=== PATIENT | female | born 1990 | race Caucasian/White ===

== ENCOUNTER 2019-09-08 22:49 | Observation (INO) | payer BC, OTHER ==
[2019-09-08] MEDS ORDERED: ASPIRIN 81 MG PO STA (23:05)
[2019-09-08] MEDS ORDERED: NITROGLYCERIN SL TABS 0.4 MG TAB SUBLINGUAL STA ×3 (23:05)
--- NOTE | 2019-09-08 23:09 | ED ---
General Adult HPI - General Source: patient, RN notes reviewed Mode of arrival: wheelchair Limitations: no limitations <Diego Bolanos - Last Filed: 09/09/19 00:06> <Ba Moreno - Last Filed: 09/09/19 02:27> - General Chief complaint: Chest Pain Stated complaint: Chest Pain Time Seen by Provider: 09/08/19 23:00 - History of Present Illness Initial comments: Patient is a pleasant 29-year-old female presenting to the emergency department with complaints of chest discomfort. Onset of symptoms was 2 weeks ago. Sy mptoms of been steady since that time. Symptoms are somewhat increased with movement of the left arm. Patient did have MRI of the neck month or so ago showing some bulging disks. Patient describes discomfort as sharp in the chest with burning radiating down the arm. Patient does feel somewhat short of breath. Patient occasionally has associated nausea and sweating, none at this time. Patient has previously seen radiology for leg edema and had negative cardiac workup around 1 year ago. This included stress test. No cough or fever. (Diego Bolanos) - Related Data Home Medications Medication Instructions Recorded Confirmed Drospirenone-Ee 3-0.02 1 tab PO DAILY 09/08/19 Gabapentin [Neurontin] 300 mg PO HS 09/08/19 09/08/19 Allergies Allergy/AdvReac Type Severity Reaction Status Date / Time No Known Allergies Allergy Verified 09/08/19 23:20 Review of Systems ROS Other: All systems not noted in ROS Statement are negative. Constitutional: Denies: fever Eyes: Denies: eye pain ENT: Reports: throat pain. Denies: ear pain Cardiovascular: Reports: chest pain Endocrine: Denies: fatigue Gastrointestinal: Denies: abdominal pain Genitourinary: Denies: dysuria Musculoskeletal: Denies: back pain Skin: Denies: rash Neurological: Denies: weakness <Diego Bolanos - Last Filed: 09/09/19 00:06> ROS Other: All systems not noted in ROS Statement are negative. <Ba Moreno - Last Filed: 09/09/19 02:27> ROS Statement: Those systems with pertinent positive or pertinent negative responses have been documented in the HPI. Past Medical History Additional Past Medical History / Comment(s): back pain, bronchitis, History of Any Multi-Drug Resistant Organisms: None Reported Past Surgical History: Back Surgery, Section Additional Past Surgical History / Comment(s): laproscopy Past Psychological History: No Psychological Hx Reported Smoking Status: Never smoker Past Alcohol Use History: Occasional Past Drug Use History: None Reported <Diego Bolanos - Last Filed: 09/09/19 00:06> General Exam Limitations: no limitations General appearance: alert, in no apparent distress Head exam: Present: normocephalic Eye exam: Present: normal appearance, PERRL ENT exam: Present: normal oropharynx Neck exam: Present: normal inspection Respiratory exam: Present: normal lung sounds bilaterally, chest wall tenderness (Mild tenderness left upper anterior chest) Cardiovascular Exam: Present: regular rate, normal rhythm Expanded Peripheral pulses: 2+: Radial (R), Radial (L), Dorsalis Pedis (R), Dorsalis Pedis (L) GI/Abdominal exam: Present: soft. Absent: distended, tenderness Extremities exam: Present: pedal edema (+1 bilateral). Absent: calf tenderness Back exam: Present: tenderness (Mild tenderness left trapezius) Neurological exam: Present: alert Psychiatric exam: Present: normal affect, normal mood Skin exam: Present: normal color. Absent: rash <Diego Bolanos - Last Filed: 09/09/19 00:06> Course Vital Signs 09/08/19 09/08/19 09/09/19 22:54 23:40 00:15 Temperature 98.4 F Pulse Rate 77 80 Respiratory 18 18 18 Rate Blood Pressure 151/89 136/87 O2 Sat by Pulse 98 97 Oximetry 09/09/19 00:47 Temperature 98.6 F Pulse Rate 72 Respiratory 18 Rate Blood Pressure 150/83 O2 Sat by Pulse 99 Oximetry EKG Findings - EKG Comments: EKG Findings:: Normal sinus rhythm 66. DC 158. QRS 100. QT 394. QTC 413. Normal axis. Normal QRS. No acute ST change. <Diego Bolanos - Last Filed: 09/09/19 00:06> Medical Decision Making - Lab Data Result diagrams: 09/08/19 23:38 - Radiology Data Radiology results: image reviewed (Chest x-ray shows no acute process) <Diego Bolanos - Last Filed: 09/09/19 00:06> - Lab Data Result diagrams: 09/08/19 23:38 09/08/19 23:38 <Ba Moreno - Last Filed: 10/17/19 02:27> - Medical Decision Making I receive this patient has a sign out, pending the results of the computed tomography scan. Dr. Bolanos had wanted me to discuss the results with the patient and complete the admission orders, given that the patient had chest pain that was relieved with nitroglycerin he had one on her to have serial cardiac enzymes and telemetry monitoring. (Ba Moreno) - Lab Data Lab Results 09/08/19 09/08/19 09/08/19 Range/Units 23:38 23:38 23:38 WBC 11.8 H (3.8-10.6) k/uL RBC 4.04 (3.80-5.40) m/uL Hgb 12.2 (11.4-16.0) gm/dL Hct 35.1 (34.0-46.0) % MCV 87.1 (80.0-100.0) fL MCH 30.3 (25.0-35.0) pg MCHC 34.8 (31.0-37.0) g/dL RDW 13.5 (11.5-15.5) % Plt Count 318 (150-450) k/uL Neutrophils % 64 % Lymphocytes % 27 % Monocytes % 5 % Eosinophils % 2 % Basophils % 0 % Neutrophils # 7.5 (1.3-7.7) k/uL Lymphocytes # 3.2 (1.0-4.8) k/uL Monocytes # 0.6 (0-1.0) k/uL Eosinophils # 0.2 (0-0.7) k/uL Basophils # 0.0 (0-0.2) k/uL PT 9.4 (9.0-12.0) sec INR 0.8 (<1.2) APTT 22.2 (22.0-30.0) sec D-Dimer 0.61 H (<0.60) mg/L FEU Sodium 138 (137-145) mmol/L Potassium 3.9 (3.5-5.1) mmol/L Chloride 104 (98-107) mmol/L Carbon Dioxide 27 (22-30) mmol/L Anion Gap 7 mmol/L BUN 11 (7-17) mg/dL Creatinine 1.01 (0.52-1.04) mg/dL Est GFR (CKD-EPI)AfAm 86 (>60 ml/min/1.73 sqM) Est GFR (CKD-EPI)NonAf 75 (>60 ml/min/1.73 sqM) Glucose 106 H (74-99) mg/dL Calcium 9.4 (8.4-10.2) mg/dL Magnesium 2.0 (1.6-2.3) mg/dL Total Bilirubin <0.1 L (0.2-1.3) mg/dL AST 19 (14-36) U/L ALT 16 (9-52) U/L Alkaline Phosphatase 59 (38-126) U/L Troponin I (0.000-0.034) ng/mL NT-Pro-B Natriuret Pep pg/mL Total Protein 6.8 (6.3-8.2) g/dL Albumin 3.9 (3.5-5.0) g/dL 09/08/19 09/08/19 Range/Units 23:38 23:38 WBC (3.8-10.6) k/uL RBC (3.80-5.40) m/uL Hgb (11.4-16.0) gm/dL Hct (34.0-46.0) % MCV (80.0-100.0) fL MCH (25.0-35.0) pg MCHC (31.0-37.0) g/dL RDW (11.5-15.5) % Plt Count (150-450) k/uL Neutrophils % % Lymphocytes % % Monocytes % % Eosinophils % % Basophils % % Neutrophils # (1.3-7.7) k/uL Lymphocytes # (1.0-4.8) k/uL Monocytes # (0-1.0) k/uL Eosinophils # (0-0.7) k/uL Basophils # (0-0.2) k/uL PT (9.0-12.0) sec INR (<1.2) APTT (22.0-30.0) sec D-Dimer (<0.60) mg/L FEU Sodium (137-145) mmol/L Potassium (3.5-5.1) mmol/L Chloride (98-107) mmol/L Carbon Dioxide (22-30) mmol/L Anion Gap mmol/L BUN (7-17) mg/dL Creatinine (0.52-1.04) mg/dL Est GFR (CKD-EPI)AfAm (>60 ml/min/1.73 sqM) Est GFR (CKD-EPI)NonAf (>60 ml/min/1.73 sqM) Glucose (74-99) mg/dL Calcium (8.4-10.2) mg/dL Magnesium (1.6-2.3) mg/dL Total Bilirubin (0.2-1.3) mg/dL AST (14-36) U/L ALT (9-52) U/L Alkaline Phosphatase (38-126) U/L Troponin I <0.012 (0.000-0.034) ng/mL NT-Pro-B Natriuret Pep 59 pg/mL Total Protein (6.3-8.2) g/dL Albumin (3.5-5.0) g/dL Disposition <Diego Bolanos - Last Filed: 09/09/19 00:06> Is patient prescribed a controlled substance at d/c from ED?: No <Ba Moreno - Last Filed: 09/09/19 02:27> Clinical Impression: Chest pain Disposition: ADMITTED IP TO THIS HOSP Condition: Good Instructions (If sedation given, give patient instructions): Chest Pain (ED) Referrals: None,Stated [REFERRING] - 1-2 days
[2019-09-08 23:54] LABS: Basophils % (A) 0 %; Eosinophils # (A) 0.2 k/uL (0-0.7); Eosinophils % (A) 2 %; HCT 35.1 % (34.0-46.0); HGB 12.2 gm/dL (11.4-16.0); Lymphocytes # (A) 3.2 k/uL (1.0-4.8); Lymphocytes % (A) 27 %; MCH 30.3 pg (25.0-35.0); MCHC 34.8 g/dL (31.0-37.0); MCV 87.1 fL (80.0-100.0); Monocytes # (A) 0.6 k/uL (0-1.0); Monocytes % (A) 5 %; Neutrophils # (A) 7.5 k/uL (1.3-7.7); Neutrophils % (A) 64 %; Platelet Count 318 k/uL (150-450); RBC 4.04 m/uL (3.80-5.40); RDW 13.5 % (11.5-15.5); WBC 11.8 k/uL (3.8-10.6)
--- NOTE | 2019-09-08 23:58 | XR ---
EXAM: XR Chest, 2 Views CLINICAL HISTORY: Chest pain. TECHNIQUE: Frontal and lateral views of the chest. COMPARISON: 08/08/2016. FINDINGS: Lungs: Unremarkable. No consolidation. Pleural space: No pneumothorax. No pleural effusion. Heart: Cardiomediastinal silhouette unremarkable. Mediastinum: See above. Bones/joints: Ribs are unremarkable. Alignment of the thoracic spine is unremarkable. Other findings: Mild hypoaeration. IMPRESSION: Mild hypoaeration. No active disease detected otherwise.
[2019-09-09 00:08] LABS: ALT 16 U/L (9-52); AST 19 U/L (14-36); African American GFR (CKD) 86 (>60 ml/min/1.73 sqM); Albumin 3.9 g/dL (3.5-5.0); Alkaline Phosphatase 59 U/L (38-126); Anion Gap 7 mmol/L; Blood Urea Nitrogen 11 mg/dL (7-17); Calcium 9.4 mg/dL (8.4-10.2); Carbon Dioxide 27 mmol/L (22-30); Chloride 104 mmol/L (98-107); Glucose 106 mg/dL (74-99); Potassium 3.9 mmol/L (3.5-5.1); Sodium 138 mmol/L (137-145); Total Bilirubin <0.1 mg/dL (0.2-1.3); Total Protein 6.8 g/dL (6.3-8.2)
[2019-09-09 00:17] LABS: INR 0.8 (<1.2); Partial Thromboplastin Time 22.2 sec (22.0-30.0); Prothrombin Time 9.4 sec (9.0-12.0)
[2019-09-09 00:22] LABS: D-Dimer 0.61 mg/L FEU (<0.60)
--- NOTE | 2019-09-09 01:59 | CT ---
EXAM: CT Angiography Chest With Intravenous Contrast CLINICAL HISTORY: ITS.REASON CT Reason: PE protocol, chest pain TECHNIQUE: Axial computed tomographic angiography images of the chest with intravenous contrast. CTDI is 26 mGy and DLP is 688 mGy-cm. This CT exam was performed using one or more of the following dose reduction techniques: automated exposure control, adjustment of the mA and/or kV according to patient size, and/or use of iterative reconstruction technique. MIP reconstructed images were created and reviewed. COMPARISON: No relevant prior studies available. FINDINGS: Pulmonary arteries: Unremarkable. No pulmonary embolism. Aorta: No acute findings. No thoracic aortic aneurysm. Lungs: Unremarkable. No mass. No consolidation. Pleural space: Unremarkable. No significant effusion. No pneumothorax. Heart: Unremarkable. No cardiomegaly. No significant pericardial effusion. No evidence of RV dysfunction. Bones/joints: No acute fracture. No dislocation. Soft tissues: Unremarkable. Lymph nodes: Unremarkable. No enlarged lymph nodes. IMPRESSION: Normal chest CTA. No pulmonary embolism.
[2019-09-09] MEDS ORDERED: NITROGLYCERIN SL TABS 0.4 MG TAB SUBLINGUAL PRN (02:23)
[2019-09-09 03:08] VITALS: PULSE 70
[2019-09-09 07:30] VITALS: RESP 16
--- NOTE | 2019-09-09 14:09 | P.CRDCN ---
History of Present Illness History of present illness: This is a 29-year-old female past medical history significant for chronic back pain and bronchitis. She denies prior history of coronary artery disease, hypertension, dyslipidemia and diabetes mellitus. She has family history significant for father having a pacemaker and her mother has a murmur. No premature coronary artery disease. 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 She states she had a exercise stress test over a year ago and an echocardiogram in 2013. Records unavailable at this time. We have been asked to see her in consultation secondary to chest discomfort. She states for the previous 2 weeks she has felt an intermittent stabbing burning chest discomfort on the left side that radiates into the left shoulder around under the left axillary region into the rib cage and mid back. She also describes a heavy numb sensation in the left arm that has been constant for the previous 2 weeks. She also describes increased fatigue and states she is falling asleep while sitting in traffic lights and unable to stay awake all at work. She also describes a 15 pound weight gain in the previous one month. He denies shortness of breath, dizziness, nausea, vomiting or palpitations. EKG reveals sinus mechanism with no acute ST or T wave abnormalities noted. Chest x-ray is negative for an acute cardiopulmonary process. CTA chest negative for pulmonary embolism. Laboratory data reviewed, WBC 11.8, hemoglobin 12.2, platelets 318, d-dimer 0.61, sodium 138, potassium 3.9, creatinine 1.01, magnesium 2.0, cardiac enzymes negative 3, proBNP 59 and TSH 2.07. She takes no daily cardiac medications. At the time of my exam: CONSTITUTIONAL: Denies fever. Denies chills. EYES: Denies blurred vision. Denies vision changes. Denies eye pain. EARS, NOSE, MOUTH & THROAT: Denies headache. Denies sore throat. Denies ear pain. CARDIOVASCULAR: Denies chest pain. Denies shortness of breath. Denies orthopnea. Denies PND. Denies palpitations. RESPIRATORY: Denies cough. GASTROINTESTINAL: Denies abdominal pain. Denies diarrhea. Denies constipation. Denies nausea. Denies vomiting. MUSCULOSKELETAL: Denies myalgias. INTEGUMENTARY: Denies pruitis. Denies rash. NEUROLOGIC: Denies numbness. Denies tingling. Denies weakness. PSYCHIATRIC: Denies anxiety. Denies depression. ENDOCRINE: Denies fatigue. Denies weight change. Denies polydipsia. Denies polyurina. GENITOURINARY: Denies burning, hematuria or urgency with micturation. HEMATOLOGIC: Denies history of anemia. Denies bleeding. Blood pressure 120/77 heart rate 70 afebrile maintaining oxygen saturation on room air GENERAL: This is a 29-year-old female in no apparent distress at the time of my examination. HEENT: Head is atraumatic, normocephalic. Pupils are equal, round. Sclerae anicteric. Conjunctivae are clear. Mucous membranes of the mouth are moist. Neck is supple. There is no jugular venous distention. No carotid bruit is heard. LUNGS: Clear to auscultation no wheezes, rales or rhonchi. No chest wall t enderness is noted on palpation or with deep breathing. HEART: Regular rate and rhythm without murmurs, rubs or gallops. S1 and S2 heard. ABDOMEN: Soft, nontender. Bowel sounds are heard. No organomegaly noted. EXTREMITIES: No evidence of peripheral edema and no calf tenderness noted. VASCULAR: Radial and dorsalis pedis pulses palpated, no evidence of clubbing. NEUROLOGIC: Patient is awake, alert and oriented x3. ASSESSMENT Chest pain, atypical. An acute coronary event has been ruled out. Symptoms are atypical to be related to angina consider possible musculoskeletal related to her back. Increased fatigue and recent weight gain PLAN An acute coronary event has been ruled out. No EKG evidence of ischemia negative cardiac enzymes. Obtain 2-D echocardiogram and Doppler study to assess cardiac structure and function. Recommend stress echocardiogram to assess for stress-induced ischemia. Consider possible radiculopathy. Thank you kindly for this consultation. Nurse Practitioner note has been reviewed, I agree with a documented findings and plan of care. Patient was seen and examined. Past Medical History Additional Past Medical History / Comment(s): back pain, bronchitis, History of Any Multi-Drug Resistant Organisms: None Reported Past Surgical History: Back Surgery, Section Additional Past Surgical History / Comment(s): laproscopy Past Anesthesia/Blood Transfusion Reactions: No Reported Reaction Past Psychological History: Anxiety Smoking Status: Never smoker Past Alcohol Use History: Occasional Past Drug Use History: None Reported Medications and Allergies Home Medications Medication Instructions Recorded Confirmed Type Drospirenone-Ee 3-0.02 1 tab PO DAILY 09/08/19 History Gabapentin [Neurontin] 300 mg PO HS 09/08/19 09/08/19 History Allergies Allergy/AdvReac Type Severity Reaction Status Date / Time No Known Allergies Allergy Verified 09/08/19 23:20 Physical Exam Vitals: Vital Signs Temp Pulse Pulse Resp BP BP Pulse Ox 09/09/19 07:41 98 09/09/19 07:20 98.2 F 70 16 120/77 98 09/09/19 03:28 17 09/09/19 02:50 98.2 F 70 18 125/79 98 09/09/19 02:29 98 F 79 18 140/82 97 09/09/19 00:47 98.6 F 72 18 150/83 99 09/09/19 00:15 18 09/08/19 23:40 80 18 136/87 97 09/08/19 22:54 98.4 F 77 18 151/89 98 Intake and Output 09/08/19 09/09/19 09/09/19 22:59 06:59 14:59 Other: # Voids 1 Weight 111.13 kg Results 09/08/19 23:38 09/08/19 23:38 Cardiac Enzymes 09/08/19 09/08/19 09/09/19 Range/Units 23:38 23:38 05:29 AST 19 (14-36) U/L Troponin I <0.012 <0.012 (0.000-0.034) ng/mL Coagulation 09/08/19 Range/Units 23:38 PT 9.4 (9.0-12.0) sec APTT 22.2 (22.0-30.0) sec CBC 09/08/19 Range/Units 23:38 WBC 11.8 H (3.8-10.6) k/uL RBC 4.04 (3.80-5.40) m/uL Hgb 12.2 (11.4-16.0) gm/dL Hct 35.1 (34.0-46.0) % Plt Count 318 (150-450) k/uL Comprehensive Metabolic Panel 09/08/19 Range/Units 23:38 Sodium 138 (137-145) mmol/L Potassium 3.9 (3.5-5.1) mmol/L Chloride 104 (98-107) mmol/L Carbon Dioxide 27 (22-30) mmol/L BUN 11 (7-17) mg/dL Creatinine 1.01 (0.52-1.04) mg/dL Glucose 106 H (74-99) mg/dL Calcium 9.4 (8.4-10.2) mg/dL AST 19 (14-36) U/L ALT 16 (9-52) U/L Alkaline Phosphatase 59 (38-126) U/L Total Protein 6.8 (6.3-8.2) g/dL Albumin 3.9 (3.5-5.0) g/dL Current Medications Generic Name Dose Route Start Last Admin Trade Name Freq PRN Reason Stop Dose Admin Aspirin 325 mg 09/10/19 09:00 Aspirin PO DAILY SANIA Nitroglycerin 0.4 mg 09/09/19 02:23 Nitrostat SUBLINGUAL Q5M PRN Chest Pain Intake and Output 09/08/19 09/09/19 09/09/19 22:59 06:59 14:59 Other: # Voids 1 Weight 111.13 kg 09/08/19 23:38 09/08/19 23:38
[2019-09-09 15:19] VITALS: BP 95/62; TEMP 98.6
[2019-09-09] MEDS ORDERED: NAPROXEN 250 MG TAB PO STA (15:58)
[2019-09-09] MEDS ORDERED: methylPREDNISolone SOD SUCCI 125 MG/2 ML VIAL IV STA (15:59)
--- NOTE | 2019-09-09 16:35 | P.HPIM ---
History of Present Illness H&P Date: 09/09/19 Chief Complaint: Chest pain History of presenting complaint: This is a pleasant 29-year-old patient of Dr. Yadi jones. Patient presents with 2 weeks of pain in the infraclavicular region. The pain does radiate around to the left chest wall. She has noticed that the pain is stabbing in nature. It is worse with left arm movements. Especially when she is overall In the chart. Work. Not related to exertion. There is no dizziness, no lightheaded dizziness, no perspiration or shortness of breath. Patient has a known history of spine disorder. Patient already had a surgery in the past of L5-S1. She does see , orthopedic spine and O's office she also walks. Because of the chest pain component she decided to come in. To rule out a cardiac cause. No prior cardiac history. She does take Motrin sometimes. No fever no chills. She is also had a MRI of the spine about a month ago. Cervical spine. She's been told she has herniated disc. Review of systems: GEN.: None EYES: None HEENT: None NECK: None RESPIRATORY: None CARDIOVASCULAR: None GASTROINTESTINAL: None GENITOURINARY: None MUSCULOSKELETAL: As above LYMPHATICS: None HEMATOLOGICAL: None PSYCHIATRY: None NEUROLOGICAL: None Past medical history to include: Lumbar L5-S1 surgery, Social history: Does not smoke. Alcohol occasionally. Denies use of any recreational drugs. 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 Family history: Reviewed, noncontributory to presentation Physical examination: VITAL SIGNS: 98.4, 77, 18, 136/87, 98% room air GENERAL: 37.3, propped up in bed, not in distress. EYES: Pupils equal. Conjunctiva normal. HEENT: External appearance of nose and ears normal, oral cavity grossly normal. NECK: JVD not raised; masses not palpable. HEART: First and second heart sounds are normal; no edema. LUNGS: Respiratory rate normal; clear to auscultation. ABDOMEN: Soft, nontender, liver spleen not palpable, no masses palpable. PSYCH: Alert and oriented x3; mood and affect normal. NEUROLOGICAL: Cranial nerves grossly intact; no facial asymmetry, power and sensation grossly intact. LYMPHATICS: No lymph nodes palpable in the axilla and neck MUSCULAR schedule: Some reproducible pain in the left anterior chest wall with movement of the left arm INVESTIGATIONS, reviewed in the clinical context: White count 10.8 hemoglobin 12.2 platelets 318 potassium 3.9 crit 1.01 Troponin I 3 negative EKG tracing personally reviewed by me-normal sinus rhythm Chest x-ray film personally reviewed by me-lung menjivar clear CTA-negative for PE Assessment: -This patient was is but left infraclavicular anterior chest wall pain that is sharp in nature. Pain is worse with using the left arm. Not related to any other exertion. Patient has known herniated disc in the cervical spine about a month ago. This could well be radicular pain. This is rather atypical for cardiac pain. Need to rule out the same. -Obesity BMI 37.3 -Herniated cervical spine disc - Plan: Cardiology was consulted. They did order a stress test. Care was discussed with the patient. Patient had already received aspirin. Past Medical History Additional Past Medical History / Comment(s): back pain, bronchitis, History of Any Multi-Drug Resistant Organisms: None Reported Past Surgical History: Back Surgery, Section Additional Past Surgical History / Comment(s): laproscopy Past Anesthesia/Blood Transfusion Reactions: No Reported Reaction Past Psychological History: Anxiety Smoking Status: Never smoker Past Alcohol Use History: Occasional Past Drug Use History: None Reported Medications and Allergies Home Medications Medication Instructions Recorded Confirmed Type Drospirenone-Ee 3-0.02 1 tab PO DAILY 09/08/19 History Gabapentin [Neurontin] 300 mg PO HS 09/08/19 09/08/19 History Naproxen [Naprosyn] 250 mg PO TID #15 tab 09/09/19 Rx predniSONE 10 mg PO DAILY #30 tab 09/09/19 Rx Allergies Allergy/AdvReac Type Severity Reaction Status Date / Time No Known Allergies Allergy Verified 09/08/19 23:20 Physical Exam Vitals: Vital Signs Temp Pulse Pulse Resp BP BP Pulse Ox 09/09/19 15:17 98.6 F 70 95/62 98 09/09/19 07:41 98 09/09/19 07:20 98.2 F 70 16 120/77 98 09/09/19 03:28 17 09/09/19 02:50 98.2 F 70 18 125/79 98 09/09/19 02:29 98 F 79 18 140/82 97 09/09/19 00:47 98.6 F 72 18 150/83 99 09/09/19 00:15 18 09/08/19 23:40 80 18 136/87 97 09/08/19 22:54 98.4 F 77 18 151/89 98 Intake and Output 09/09/19 09/09/19 09/09/19 06:59 14:59 22:59 Other: Voiding Method Toilet # Voids 1 Results CBC & Chem 7: 09/08/19 23:38 09/08/19 23:38 Labs: Abnormal Lab Results - Last 24 Hours (Table) 09/08/19 09/08/19 09/08/19 Range/Units 23:38 23:38 23:38 WBC 11.8 H (3.8-10.6) k/uL D-Dimer 0.61 H (<0.60) mg/L FEU Glucose 106 H (74-99) mg/dL Total Bilirubin <0.1 L (0.2-1.3) mg/dL Thrombosis Risk Factor Assmnt - Choose All That Apply Any of the Below Risk Factors Present?: No Other Risk Factors: No Other congenital or acquired thrombophilia - If yes, enter type in comment: No Thrombosis Risk Factor Assessment Level: Very Low Risk
--- NOTE | 2019-09-09 18:50 | P.STRESS ---
- Stress Test Note Stress Test Results/Findings: Exam Performed: stress echo exercise Exam Date: 09/09/19 Reason for Exam: CP Height: 5 ft 8 in Weight: 111.13 kg Protocol: STRESS ECHO Stage: 3 Duration of Exercise: 9:00 Resting Heart Rate: 69 Resting Blood Pressure: 143/75 Maximum Achieved Heart Rate: 173 Maximum Achieved Blood Pressure: 198/97 85% PMHR: 161 100% PMHR: 189 METS: 10.3 Technologist Comment: Stress Test Results/Findings: This is a 29-year-old female was admitted to the hospital with chest pain and shortness of breath. Patient also has sisters COPD. Stress data: Baseline EKG showed sinus rhythm with normal MS interval, QRS duration. Blood pressure at rest is 143/75 with pulse rate of 69. Patient walked on the [place] protocol for 9 minutes achieving a maximal heart rate of 173 with a blood pressure 190-97. EKGs taken during and after the exercise did not reveal any significant changes from the baseline. Echo data: Baseline echo images showed normal wall motion and thickening. Exercise echo images showed augmentation of the wall motion and thickening in all the segments. Final impression: #1. Negative stress test #2. Negative stress echo.
--- NOTE | 2019-09-09 23:17 | P.DS ---
Providers Date of admission: 09/09/19 02:24 Expected date of discharge: 09/09/19 Attending physician: Solis Tolbert Consults: 09/09/19 02:23 Consult Physician Routine Consulting Provider: Tj Lewis Consult Reason/Comments: chest pain Do you want consulting provider notified?: Yes Primary care physician: Amy Ambriz [facility] Course: Chief Complaint: Chest pain Hospital course: This is a pleasant 29-year-old patient of Dr. Yadi ambriz. Patient presents with 2 weeks of pain in the infraclavicular region. The pain does radiate around to the left chest wall. She has noticed that the pain is stabbing in nature. It is worse with left arm movements. Especially when she is overall In the chart. Work. Not related to exertion. There is no dizziness, no lightheaded dizziness, no perspiration or shortness of breath. Patient has a known history of spine disorder. Patient already had a surgery in the past of L5-S1. She does see , orthopedic spine and O's office she also walks. Because of the chest pain component she decided to come in. To rule out a cardiac cause. No prior cardiac history. She does take Motrin sometimes. No fever no chills. She is also had a MRI of the spine about a month ago. Cervical spine. She's been told she has herniated disc. Patient underwent a stress EKG. That was negative. Pain is felt to be from one disc in the neck with radiculopathy. Patient told to follow-up with orthopedic spine doctor. Has been given a short burst of NSAIDs and steroids. Consultation: Dr. San from cardiology Physical examination: VITAL SIGNS: 98.4, 77, 18, 136/87, 98% room air GENERAL: 37.3, propped up in bed, not in distress. EYES: Pupils equal. Conjunctiva normal. HEENT: External appearance of nose and ears normal, oral cavity grossly normal. NECK: JVD not raised; masses not palpable. HEART: First and second heart sounds are normal; no edema. LUNGS: Respiratory rate normal; clear to auscultation. ABDOMEN: Soft, nontender, liver spleen not palpable, no masses palpable. PSYCH: Alert and oriented x3; mood and affect normal. MUSCULAR schedule: Some reproducible pain in the left anterior chest wall with movement of the left arm INVESTIGATIONS, reviewed in the clinical context: White count 10.8 hemoglobin 12.2 platelets 318 potassium 3.9 crit 1.01 Troponin I 3 negative EKG tracing personally reviewed by me-normal sinus rhythm Chest x-ray film personally reviewed by me-lung menjivar clear CTA-negative for PE Negative stress test. Discharge diagnosis: -Left anterior chest wall pain with left arm pain possibly felt to be musculoskeletal with some radicular element promulgated disc in the neck. -Obesity BMI 37.3 -Herniated cervical spine disc - Disposition: Home Patient Condition at Discharge: Stable Plan - Discharge Summary Discharge Rx Participant: No New Discharge Prescriptions: New Naproxen [Naprosyn] 250 mg PO TID #15 tab predniSONE 10 mg PO DAILY #30 tab Continue Gabapentin [Neurontin] 300 mg PO HS Drospirenone-Ee 3-0.02 1 tab PO DAILY Discharge Medication List Drospirenone-Ee 3-0.02 1 tab PO DAILY 09/08/19 [History] Gabapentin [Neurontin] 300 mg PO HS 09/08/19 [History] Naproxen [Naprosyn] 250 mg PO TID #15 tab 09/09/19 [Rx] predniSONE 10 mg PO DAILY #30 tab 09/09/19 [Rx] Follow up Appointment(s)/Referral(s): dr carmen [Other] - 3 Days Amy Ambriz MD [Primary Care Provider] - 1 Week None,Stated [REFERRING] - 1-2 days Patient Instructions/Handouts: Chest Pain (ED) Discharge/Stand Alone Forms: Work/School Release / Restrict Discharge Disposition: HOME SELF-CARE
[2019-09-10] MEDS ORDERED: ASPIRIN 325 MG TAB PO SCH (09:00)
--- NOTE | 2019-09-10 12:50 | ECHOS ---
Stress Test Results/Findings: Exam Performed: stress echo exercise Exam Date: 09/09/19 Reason for Exam: CP Height: 5 ft 8 in Weight: 111.13 kg Protocol: STRESS ECHO Stage: 3 Duration of Exercise: 9:00 Resting Heart Rate: 69 Resting Blood Pressure: 143/75 Maximum Achieved Heart Rate: 173 Maximum Achieved Blood Pressure: 198/97 85% PMHR: 161 100% PMHR: 189 METS: 10.3 Technologist Comment: Stress Test Results/Findings: This is a 29-year-old female was admitted to the hospital with chest pain and shortness of breath. Patient also has sisters COPD. Stress data: Baseline EKG showed sinus rhythm with normal MO interval, QRS duration. Blood pressure at rest is 143/75 with pulse rate of 69. Patient walked on the [place] protocol for 9 minutes achieving a maximal heart rate of 173 with a blood pressure 190-97. EKGs taken during and after the exercise did not reveal any significant changes from the baseline. Echo data: Baseline echo images showed normal wall motion and thickening. Exercise echo images showed augmentation of the wall motion and thickening in all the segments. Final impression: #1. Negative stress test #2. Negative stress echo. LOUISE
--- NOTE | 2019-09-17 11:01 | ECHOF ---
Referral Reason:sob, weight gain MEASUREMENTS -------- HEIGHT: 172.7 cm WEIGHT: 111.1 kg BP: 120/77 RVIDd: 2.7 cm (< 3.3) IVSd: 1.1 cm (0.6 - 1.1) LVIDd: 4.3 cm (3.9 - 5.3) LVPWd: 1.1 cm (0.6 - 1.1) IVSs: 1.3 cm LVIDs: 3.1 cm LVPWs: 1.5 cm LA Diam: 3.4 cm (2.7 - 3.8) LAESV Index (A-L): 21.68 ml/m Ao Diam: 3.0 cm (2.0 - 3.7) AV Cusp: 1.8 cm (1.5 - 2.6) LA Diam: 3.5 cm (2.7 - 3.8) MV EXCURSION: 19.523 mm (> 18.000) MV EF SLOPE: 117 mm/s (70 - 150) EPSS: 0.7 cm MV E Andrew: 0.85 m/s MV DecT: 196 ms MV A Andrew: 0.63 m/s MV E/A Ratio: 1.35 RAP: 5.00 mmHg RVSP: 11.95 mmHg FINDINGS -------- Sinus rhythm. This was a technically adequate study. LV size, wall thickness and systolic function are normal, with an EF greater than 55%. The left geronimo tricular size is normal. The right ventricle is normal in size. The left atrial size is normal. The right atrial size is normal. The aortic valve is trileaflet, and appears structurally normal. No aortic stenosis or regurgitation. Mild mitral annular calcification present. Mild mitral regurgitation is present. Mild tricuspid regurgitation present. Right ventricular systolic pressure is normal at < 35 mmHg. There is no evidence of pulmonary hypertension. There is no pulmonic regurgitation present. The aortic root size is normal. There is no pericardial effusion. CONCLUSIONS -------- 1. Sinus rhythm. 2. This was a technically adequate study. 3. LV size, wall thickness and systolic function are normal, with an EF greater than 55%. 4. The left ventricular size is normal. 5. The right ventricle is normal in size. 6. The left atrial size is normal. 7. The right atrial size is normal. 8. The aortic valve is trileaflet, and appears structurally normal. No aortic stenosis or regurgitati on. 9. Mild mitral annular calcification present. 10. Mild mitral regurgitation is present. 11. Mild tricuspid regurgitation present. 12. Right ventricular systolic pressure is normal at < 35 mmHg. 13. There is no evidence of pulmonary hypertension. 14. There is no pulmonic regurgitation present. 15. The aortic root size is normal. 16. There is no pericardial effusion. VOLUNTEER RECRUITER: Yola Munoz RDCS
== END 2019-09-09 16:42 | disposition home or self-care (01) ==
LOC: EC 22:49 → 1SOBS 09-09 02:24
PROVIDERS: ADMIT Hospitalist; ATTEND Hospitalist
DX: R07.89 Other chest pain (principal); M79.602 Pain in left arm; M50.20 Other cervical disc displacement, unspecified cervical region; R06.02 Shortness of breath; R20.0 Anesthesia of skin; R53.83 Other fatigue; E66.9 Obesity, unspecified; Z68.37 Body mass index [BMI] 37.0-37.9, adult; F41.9 Anxiety disorder, unspecified; G89.29 Other chronic pain; Z79.899 Other long term (current) drug therapy; Z79.3 Long term (current) use of hormonal contraceptives; Z79.1 Long term (current) use of non-steroidal anti-inflammatories (NSAID); Z79.52 Long term (current) use of systemic steroids; Z87.09 Personal history of other diseases of the respiratory system; Z82.5 Family history of asthma and other chronic lower respiratory diseases; Z82.49 Family history of ischemic heart disease and other diseases of the circulatory system
CPT/HCPCS: 93005 ×2; 96374; 99285; 36415; 94760; 93306; 93351; 85379; 83880; 80053; 84443; 83735; 84484 ×2; 85025; 85610; 85730; 71046; 71275; G0378; J2930; Q9967

== ENCOUNTER 2019-12-17 18:31 | Emergency (ER) | payer BC ==
[2019-12-17 18:36] VITALS: TEMP 98.3
[2019-12-17] MEDS ORDERED: ONDANSETRON 4 MG/2 ML VIAL IVP STA (18:46)
[2019-12-17] MEDS ORDERED: KETOROLAC 30 MG/ML 1 ML VIAL IVP STA (18:46)
[2019-12-17] MEDS ORDERED: SODIUM CHLORIDE 0.9% 1,000 ML IV STA (18:46)
--- NOTE | 2019-12-17 19:04 | ED ---
Abdominal Pain HPI - General Chief Complaint: Abdominal Pain Stated Complaint: Abd pain Time Seen by Provider: 12/17/19 18:37 Source: patient Mode of arrival: ambulatory Limitations: no limitations - History of Present Illness Initial Comments: Patient is a 29-year-old female presenting to emergency Department with complaints of right upper quadrant pain for the past week. She has reports associated nausea. She describes the pain as dull, achy with intermittent spurts of sharp pains. She does state it is worse after eating. She denies any fever, vomiting, diarrhea. She's been having regular bowel movements. She denies any vaginal complaints, dysuria. She denies any previous abdominal surgeries. She has no other complaints at this time. Upon arrival to ER, her vital signs are stable. - Related Data Home Medications Medication Instructions Recorded Confirmed Drospirenone-Ee 3-0.02 1 tab PO DAILY 09/08/19 Gabapentin [Neurontin] 300 mg PO HS 09/08/19 09/08/19 Previous Rx's Medication Instructions Recorded Naproxen [Naprosyn] 250 mg PO TID #15 tab 09/09/19 predniSONE 10 mg PO DAILY #30 tab 09/09/19 Allergies Allergy/AdvReac Type Severity Reaction Status Date / Time No Known Allergies Allergy Verified 09/08/19 23:20 Review of Systems ROS Statement: Those systems with pertinent positive or pertinent negative responses have been documented in the HPI. ROS Other: All systems not noted in ROS Statement are negative. Past Medical History Past Medical History: No Reported History Additional Past Medical History / Comment(s): back pain, bronchitis, History of Any Multi-Drug Resistant Organisms: None Reported Past Surgical History: Back Surgery, Section Additional Past Surgical History / Comment(s): laproscopy Past Anesthesia/Blood Transfusion Reactions: No Reported Reaction Past Psychological History: Anxiety Smoking Status: Never smoker Past Alcohol Use History: Rare Past Drug Use History: None Reported General Exam - General Exam Comments Initial Comments: GENERAL: Well-appearing, well-nourished and in no acute distress. HEAD: Atraumatic, normocephalic. EYES: Pupils equal round and reactive to light, extraocular movements intact, sclera anicteric, conjunctiva are normal. ENT: Nares patent, oropharynx clear without exudates. Moist mucous membranes. NECK: Normal range of motion, supple without lymphadenopathy or JVD. LUNGS: Breath sounds clear to auscultation bilaterally and equal. No wheezes rales or rhonchi. HEART: Regular rate and rhythm without murmurs, rubs or gallops. ABDOMEN: Tender to palpation in the right upper quadrant, epigastric area. No lower abdominal tenderness. Soft, normoactive bowel sounds. No guarding, no rebound. No masses appreciated. : Deferred EXTREMITIES: Normal range of motion, no pitting or edema. No clubbing or cyanosis. NEUROLOGICAL: Normal speech, normal gait. PSYCH: Normal mood, normal affect. SKIN: Warm, Dry, normal turgor, no rashes or lesions noted. Limitations: no limitations Course Vital Signs 12/17/19 12/17/19 12/17/19 18:32 18:35 21:59 Temperature 98.3 F 98.3 F Pulse Rate 79 70 Respiratory 18 20 20 Rate Blood Pressure 121/82 119/67 O2 Sat by Pulse 99 99 Oximetry - Reevaluation(s) Reevaluation #1: 12/17/19 20:46 Patient resting comfortably. We called lab to see where her blood work was. He stated they did not receive the lab work even though retracted the tube it to the lab. Lab is coming to redraw her blood work. Medical Decision Making - Medical Decision Making Patient is a 29-year-old female presenting with right upper quadrant pain and nausea for 1 week. No history of abdominal surgeries. Vital signs are stable upon arrival. Lab work is unremarkable, urine is normal. Ultrasound of the gallbladder shows no gallstones or dilated ducts. There was evidence for tenderness over the gallbladder. I discussed these findings with the patient a nd this is most likely biliary colic. Patient is stable for discharge at this time. She is given fluids and Toradol. She will follow up with GI. Return parameters were discussed with the patient she verbalized understanding. - Lab Data Result diagrams: 12/17/19 20:39 12/17/19 20:39 Lab Results 12/17/19 12/17/19 12/17/19 Range/Units 19:32 19:32 20:39 WBC (3.8-10.6) k/uL RBC (3.80-5.40) m/uL Hgb (11.4-16.0) gm/dL Hct (34.0-46.0) % MCV (80.0-100.0) fL MCH (25.0-35.0) pg MCHC (31.0-37.0) g/dL RDW (11.5-15.5) % Plt Count (150-450) k/uL Neutrophils % % Lymphocytes % % Monocytes % % Eosinophils % % Basophils % % Neutrophils # (1.3-7.7) k/uL Lymphocytes # (1.0-4.8) k/uL Monocytes # (0-1.0) k/uL Eosinophils # (0-0.7) k/uL Basophils # (0-0.2) k/uL PT (9.0-12.0) sec INR (<1.2) APTT (22.0-30.0) sec Sodium 139 (137-145) mmol/L Potassium 4.2 (3.5-5.1) mmol/L Chloride 106 (98-107) mmol/L Carbon Dioxide 27 (22-30) mmol/L Anion Gap 6 mmol/L BUN 15 (7-17) mg/dL Creatinine 0.85 (0.52-1.04) mg/dL Est GFR (CKD-EPI)AfAm >90 (>60 ml/min/1.73 sqM) Est GFR (CKD-EPI)NonAf >90 (>60 ml/min/1.73 sqM) Glucose 89 (74-99) mg/dL Calcium 9.0 (8.4-10.2) mg/dL Total Bilirubin 0.3 (0.2-1.3) mg/dL AST 23 (14-36) U/L ALT 23 (4-34) U/L Alkaline Phosphatase 50 (38-126) U/L Total Protein 6.7 (6.3-8.2) g/dL Albumin 3.8 (3.5-5.0) g/dL Amylase 38 (30-110) U/L Lipase 59 (23-300) U/L Urine Color Yellow Urine Appearance Cloudy H (Clear) Urine pH 6.0 (5.0-8.0) Ur Specific [place] 1.028 (1.001-1.035) Urine Protein Trace H (Negative) Urine Glucose (UA) Negative (Negative) Urine Ketones Negative (Negative) Urine Blood Trace H (Negative) Urine Nitrite Negative (Negative) Urine Bilirubin Negative (Negative) Urine Urobilinogen <2.0 (<2.0) mg/dL Ur Leukocyte Esterase Trace H (Negative) Urine RBC 2 (0-5) /hpf Urine WBC 3 (0-5) /hpf Ur Squamous Epith Cells 4 (0-4) /hpf Urine Bacteria Occasional H (None) /hpf Hyaline Casts 1 (0-2) /lpf Urine Mucus Rare H (None) /hpf Urine HCG, Qual Not Detected (Not Detectd) 12/17/19 12/17/19 Range/Units 20:39 20:39 WBC 10.6 (3.8-10.6) k/uL RBC 4.19 (3.80-5.40) m/uL Hgb 12.4 (11.4-16.0) gm/dL Hct 36.8 (34.0-46.0) % MCV 87.8 (80.0-100.0) fL MCH 29.5 (25.0-35.0) pg MCHC 33.6 (31.0-37.0) g/dL RDW 13.2 (11.5-15.5) % Plt Count 272 (150-450) k/uL Neutrophils % 68 % Lymphocytes % 24 % Monocytes % 5 % Eosinophils % 1 % Basophils % 0 % Neutrophils # 7.2 (1.3-7.7) k/uL Lymphocytes # 2.5 (1.0-4.8) k/uL Monocytes # 0.6 (0-1.0) k/uL Eosinophils # 0.1 (0-0.7) k/uL Basophils # 0.0 (0-0.2) k/uL PT 9.6 (9.0-12.0) sec INR 0.9 (<1.2) APTT 21.0 L (22.0-30.0) sec Sodium (137-145) mmol/L Potassium (3.5-5.1) mmol/L Chloride (98-107) mmol/L Carbon Dioxide (22-30) mmol/L Anion Gap mmol/L BUN (7-17) mg/dL Creatinine (0.52-1.04) mg/dL Est GFR (CKD-EPI)AfAm (>60 ml/min/1.73 sqM) Est GFR (CKD-EPI)NonAf (>60 ml/min/1.73 sqM) Glucose (74-99) mg/dL Calcium (8.4-10.2) mg/dL Total Bilirubin (0.2-1.3) mg/dL AST (14-36) U/L ALT (4-34) U/L Alkaline Phosphatase (38-126) U/L Total Protein (6.3-8.2) g/dL Albumin (3.5-5.0) g/dL Amylase (30-110) U/L Lipase (23-300) U/L Urine Color Urine Appearance (Clear) Urine pH (5.0-8.0) Ur Specific [place] (1.001-1.035) Urine Protein (Negative) Urine Glucose (UA) (Negative) Urine Ketones (Negative) Urine Blood (Negative) Urine Nitrite (Negative) Urine Bilirubin (Negative) Urine Urobilinogen (<2.0) mg/dL Ur Leukocyte Esterase (Negative) Urine RBC (0-5) /hpf Urine WBC (0-5) /hpf Ur Squamous Epith Cells (0-4) /hpf Urine Bacteria (None) /hpf Hyaline Casts (0-2) /lpf Urine Mucus (None) /hpf Urine HCG, Qual (Not Detectd) Disposition Clinical Impression: Biliary colic, Nausea Disposition: HOME SELF-CARE Condition: Stable Instructions (If sedation given, give patient instructions): Biliary Colic (ED) Additional Instructions: Please return to the Emergency Department if symptoms worsen or any other concerns. Use Zofran as needed for nausea. Recommend BRAT diet. Follow up with GI as discussed. Is patient prescribed a controlled substance at d/c from ED?: No Referrals: Amy Ambriz MD [Primary Care Provider] - 1-2 days Armaan Alvarenga MD [STAFF PHYSICIAN] - 1-2 days
[2019-12-17 19:17] VITALS: RESP 20
[2019-12-17 19:44] LABS: Appearance,Urine Cloudy (Clear); Bacteria,Urine Occasional /hpf; Bilirubin,Urine Negative (Negative); Blood,Urine Trace (Negative); Color,Urine Yellow; Glucose,Urine (UA) Negative (Negative); Hyaline Casts,Urine 1 /lpf (0-2); Ketones,Urine Negative (Negative); Leukocyte Esterase,Urine Trace (Negative); Mucus,Urine Rare /hpf; Nitrite,Urine Negative (Negative); Protein,Urine Trace (Negative); RBC,Urine 2 /hpf (0-5); Specific Gravity,Urine 1.028 (1.001-1.035); Squamous Epithelial Cell,Urine 4 /hpf (0-4); Urobilinogen,Urine <2.0 mg/dL (<2.0); WBC,Urine 3 /hpf (0-5)
--- NOTE | 2019-12-17 20:12 | US ---
EXAMINATION TYPE: US gallbladder DATE OF EXAM: 12/17/2019 COMPARISON: NONE CLINICAL HISTORY: RUQ pain, nausea x 1 wk. RUQ pain x 1 week, nausea, chills, sweats, pain gets worse after eating EXAM MEASUREMENTS: Liver Length: 15.3 cm Gallbladder Wall: 0.2 cm CBD: 0.3 cm Right Kidney: 9.5 x 4.6 x 5.0 cm Difficult and limited study due to patient body habitus Pancreas: visualized portions wnl, limited by overlying midline bowel gas Liver: mildly course echotexture Gallbladder: wnl Evidence for sonographic Grier's sign: yes CBD: visualized portions wnl, limited by overlying bowel gas Right Kidney: visualized portions wnl, inferior pole limited by overlying bowel gas IMPRESSION: There was tenderness over the gallbladder. No gallstones or dilated ducts.
[2019-12-17 21:11] LABS: ALT 23 U/L (4-34); AST 23 U/L (14-36); African American GFR (CKD) >90 (>60 ml/min/1.73 sqM); Albumin 3.8 g/dL (3.5-5.0); Alkaline Phosphatase 50 U/L (38-126); Amylase 38 U/L (30-110); Anion Gap 6 mmol/L; Blood Urea Nitrogen 15 mg/dL (7-17); Carbon Dioxide 27 mmol/L (22-30); Chloride 106 mmol/L (98-107); Glucose 89 mg/dL (74-99); Non-African American GFR(CKD) >90 (>60 ml/min/1.73 sqM); Potassium 4.2 mmol/L (3.5-5.1); Sodium 139 mmol/L (137-145); Total Bilirubin 0.3 mg/dL (0.2-1.3); Total Protein 6.7 g/dL (6.3-8.2)
[2019-12-17 21:15] LABS: Basophils % (A) 0 %; Eosinophils # (A) 0.1 k/uL (0-0.7); Eosinophils % (A) 1 %; HCT 36.8 % (34.0-46.0); HGB 12.4 gm/dL (11.4-16.0); Lymphocytes # (A) 2.5 k/uL (1.0-4.8); Lymphocytes % (A) 24 %; MCH 29.5 pg (25.0-35.0); MCHC 33.6 g/dL (31.0-37.0); MCV 87.8 fL (80.0-100.0); Mean Platelet Volume 7.4; Monocytes # (A) 0.6 k/uL (0-1.0); Monocytes % (A) 5 %; Neutrophils # (A) 7.2 k/uL (1.3-7.7); Neutrophils % (A) 68 %; Platelet Count 272 k/uL (150-450); RBC 4.19 m/uL (3.80-5.40); RDW 13.2 % (11.5-15.5); WBC 10.6 k/uL (3.8-10.6)
[2019-12-17 21:35] LABS: INR 0.9 (<1.2); Prothrombin Time 9.6 sec (9.0-12.0)
[2019-12-17] MEDS ORDERED: ONDANSETRON 4 MG ODT STARTER PACK 2 TAB BTL PO STA (21:44)
[2019-12-17 22:00] VITALS: BP 119/67; PULSE 70
== END 2019-12-17 22:01 | disposition home or self-care (01) ==
LOC: EC 18:31
DX: K80.50 Calculus of bile duct without cholangitis or cholecystitis without obstruction (principal); F41.9 Anxiety disorder, unspecified; Z79.3 Long term (current) use of hormonal contraceptives; Z79.899 Other long term (current) drug therapy
CPT/HCPCS: 36415; 80053; 82150; 83690; 85025; 85610; 85730; 81001; 81025; 76705; 99284; 96374; 96375; 96361; J2405; J1885; S0119

== ENCOUNTER 2020-02-12 19:20 | Emergency (ER) | payer BC ==
[2020-02-12 19:26] VITALS: TEMP 98.2
[2020-02-12 20:11] VITALS: BP 151/96; RESP 18
--- NOTE | 2020-02-12 20:11 | XR ---
EXAMINATION TYPE: XR chest 2V DATE OF EXAM: 02/12/2020 COMPARISON: 09/08/2019 HISTORY: Cough TECHNIQUE: FINDINGS: Heart and mediastinum are normal. Lungs are clear. Diaphragm is normal. Bony thorax appears normal. IMPRESSION: Normal chest. No change.
--- NOTE | 2020-02-12 20:22 | ED ---
General Adult HPI - General Chief complaint: Shortness of Breath Stated complaint: NILDA Time Seen by Provider: 02/12/20 19:28 Source: patient, RN notes reviewed Mode of arrival: ambulatory Limitations: no limitations - History of Present Illness Initial comments: 29-year-old female with a past medical history of asthma presents to the emergency department for a chief clinic of cough and shortness of breath. Patient states this has been ongoing for 1 week. She also has some slight congestion as well as a sore throat. States cough worsens at work because they spray Lysol and it causes exacerbation of her asthma. States she feels like she has her normal bronchitis and usually needs a steroid pack. She denies fevers. Denies recent travel. Denies smoking history.Patient has no other complaints at this time including chest pain, abdominal pain, nausea or vomiting, headache, or visual changes. - Related Data Home Medications Medication Instructions Recorded Confirmed Drospirenone-Ee 3-0.02 1 tab PO DAILY 09/08/19 Gabapentin [Neurontin] 300 mg PO HS 09/08/19 09/08/19 Previous Rx's Medication Instructions Recorded Naproxen [Naprosyn] 250 mg PO TID #15 tab 09/09/19 predniSONE 10 mg PO DAILY #30 tab 09/09/19 Allergies Allergy/AdvReac Type Severity Reaction Status Date / Time No Known Allergies Allergy Verified 02/12/20 19:21 Review of Systems ROS Statement: Those systems with pertinent positive or pertinent negative responses have been documented in the HPI. ROS Other: All systems not noted in ROS Statement are negative. Past Medical History Past Medical History: Asthma Additional Past Medical History / Comment(s): back pain, bronchitis, narcolepsy History of Any Multi-Drug Resistant Organisms: None Reported Past Surgical History: Back Surgery, Section Additional Past Surgical History / Comment(s): laproscopy Past Anesthesia/Blood Transfusion Reactions: No Reported Reaction Past Psychological History: Anxiety Smoking Status: Never smoker Past Alcohol Use History: Rare Past Drug Use History: None Reported General Exam Limitations: no limitations General appearance: alert, in no apparent distress Head exam: Present: atraumatic, normocephalic, normal inspection Eye exam: Present: normal appearance, PERRL, EOMI. Absent: scleral icterus, conjunctival injection, periorbital swelling ENT exam: Present: normal exam, normal oropharynx, mucous membranes moist, TM's normal bilaterally, normal external ear exam Neck exam: Present: normal inspection, full ROM. Absent: tenderness, meningismus, lymphadenopathy Respiratory exam: Present: normal lung sounds bilaterally. Absent: respiratory distress, wheezes, rales, rhonchi, stridor Cardiovascular Exam: Present: regular rate, normal rhythm, normal heart sounds. Absent: systolic murmur, diastolic murmur, rubs, gallop, clicks Course Vital Signs 02/12/20 02/12/20 19:21 20:00 Temperature 98.2 F Pulse Rate 96 95 Respiratory 20 18 Rate Blood Pressure 163/121 151/96 O2 Sat by Pulse 98 97 Oximetry EKG Findings - EKG Comments: EKG Findings:: Normal sinus rhythm, ventricular rate 86, NM interval 160, QTC 440 Medical Decision Making - Medical Decision Making Vitals are stable. Patient is well appearing. She is sitting up in bed. No respiratory distress. Patient does appear to have mild congestion. Lungs are c lear bilaterally. Exam is unremarkable. Patient was given breathing treatment which did help significantly with her symptoms. Chest x-ray shows a normal chest no change. Patient is requesting steroid pack. Patient will follow up with primary care in 1-2 days. She'll return if she has any worsening symptoms. I discussed this case with attending Dr. Pereira who agrees with this assessment and treatment plan. Under current recommendations, patient does not qualify for covid 19 testing. It is recommended that she self quarantine for 14 days and return if she has difficulty breathing or other worsening symptoms. Disposition Clinical Impression: Cough Disposition: HOME SELF-CARE Condition: Good Instructions (If sedation given, give patient instructions): Acute Cough (ED) Additional Instructions: Please take steroid as directed. Follow-up with your doctor in one to 2 days. If you have any worsening symptoms return to the emergency department. Given symptoms please self quarantine for 14 days. Is patient prescribed a controlled substance at d/c from ED?: No Referrals: Amy Ambriz MD [Primary Care Provider] - 1-2 days Time of Disposition: 20:20
[2020-02-12] MEDS ORDERED: IPRATROPIUM-ALBUTEROL 3 ML NEB INHALATION STA (20:29)
[2020-02-12 20:44] VITALS: PULSE 96
== END 2020-02-12 21:25 | disposition home or self-care (01) ==
LOC: EC 19:20
DX: R05 Cough (principal); R09.89 Other specified symptoms and signs involving the circulatory and respiratory systems; R06.02 Shortness of breath; J02.9 Acute pharyngitis, unspecified; F41.9 Anxiety disorder, unspecified; Z79.3 Long term (current) use of hormonal contraceptives; Z79.899 Other long term (current) drug therapy; Z87.09 Personal history of other diseases of the respiratory system
CPT/HCPCS: 71046; 93005; 94640; 99285

== ENCOUNTER 2021-11-17 15:43 | Emergency (ER) | payer BC ==
[2021-11-17 16:53] VITALS: BP 126/87; PULSE 81; RESP 16; TEMP 99.1
[2021-11-17] MEDS ORDERED: DEXAMETHASONE SOD PHOSPHATE 10 MG/ML 1 ML VIAL IM STA (18:33)
--- NOTE | 2021-11-17 18:48 | ED ---
URI HPI - General Chief Complaint: Upper Respiratory Infection Stated Complaint: ENT Time Seen by Provider: 11/17/21 18:25 Source: patient, RN notes reviewed Mode of arrival: ambulatory Limitations: no limitations - History of Present Illness Initial Comments: Patient is a 31-year-old female that presents to the emergency room complaining of upper respiratory tract symptoms for the past 2 days. 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 Patient notes she isn't orthopedic nurse and has been exposed since the beginning. Patient denied any other issues or complaints. She is well- appearing. She denied chest pain headache nausea vomiting diarrhea constipation fever fatigue chills. - Related Data Home Medications Medication Instructions Recorded Confirmed Drospirenone-Ee 3-0.02 1 tab PO DAILY 09/08/19 Gabapentin [Neurontin] 300 mg PO HS 09/08/19 09/08/19 Previous Rx's Medication Instructions Recorded Naproxen [Naprosyn] 250 mg PO TID #15 tab 09/09/19 predniSONE 10 mg PO DAILY #30 tab 09/09/19 methylPREDNISolone Dose Pack 4 mg PO DIRECTED #21 package 02/12/20 [Medrol Dose Pack] predniSONE 50 mg PO DAILY #5 tab 11/17/21 Allergies Allergy/AdvReac Type Severity Reaction Status Date / Time No Known Allergies Allergy Verified 11/17/21 16:53 Review of Systems ROS Statement: Those systems with pertinent positive or pertinent negative responses have been documented in the HPI. ROS Other: All systems not noted in ROS Statement are negative. Past Medical History Past Medical History: Asthma Additional Past Medical History / Comment(s): back pain, bronchitis, narcolepsy History of Any Multi-Drug Resistant Organisms: None Reported Past Surgical History: Back Surgery, Section Additional Past Surgical History / Comment(s): laproscopy Past Anesthesia/Blood Transfusion Reactions: No Reported Reaction Past Psychological History: Anxiety Smoking Status: Never smoker Past Alcohol Use History: Rare Past Drug Use History: None Reported General Exam Limitations: no limitations General appearance: alert, in no apparent distress, obese Head exam: Present: atraumatic, normocephalic, normal inspection Eye exam: Present: normal appearance, PERRL, EOMI. Absent: scleral icterus, conjunctival injection, periorbital swelling ENT exam: Present: normal exam, mucous membranes moist Neck exam: Present: normal inspection Respiratory exam: Present: normal lung sounds bilaterally. Absent: respiratory distress, wheezes, rales, rhonchi, stridor Cardiovascular Exam: Present: regular rate, normal rhythm, normal heart sounds. Absent: systolic murmur, diastolic murmur, rubs, gallop, clicks Extremities exam: Present: normal inspection, full ROM, normal capillary refill. Absent: tenderness, pedal edema, joint swelling, calf tenderness Neurological exam: Present: alert, oriented X3 Psychiatric exam: Present: normal affect, normal mood Skin exam: Present: warm, dry, intact, normal color. Absent: rash Course Vital Signs 11/17/21 16:50 Temperature 99.1 F Pulse Rate 81 Respiratory 16 Rate Blood Pressure 126/87 O2 Sat by Pulse 97 Oximetry Medical Decision Making - Medical Decision Making 31-year-old female up respiratory tract symptoms for the past 2 days. Covid test ordered and was positive. Patient does not meet criteria for monoclonal antibodies, 10 mg of Decadron ordered and steroids will be sent to pharmacy. Patient is agreeable with this plan and agrees to follow-up with primary care. case discussed with Dr. Gan, patient discharge home. - Lab Data Lab Results 11/17/21 Range/Units 16:56 Coronavirus (PCR) Detected A (Not Detectd) Disposition Clinical Impression: COVID Disposition: HOME SELF-CARE Condition: Stable Instructions (If sedation given, give patient instructions): Coronavirus Disease 2019 (COVID-19) Additional Instructions: Please return to the Emergency Department if symptoms worsen or any other concerns. Follow-up with primary care in 1-2 days. Take steroids as prescribed. Prescriptions: predniSONE 50 mg PO DAILY #5 tab Is patient prescribed a controlled substance at d/c from ED?: No Referrals: Amy Ambriz MD [Primary Care Provider] - 1-2 days Time of Disposition: 18:47
== END 2021-11-17 18:45 | disposition home or self-care (01) ==
LOC: EC 15:43
DX: U07.1 COVID-19 (principal); J06.9 Acute upper respiratory infection, unspecified; Z79.3 Long term (current) use of hormonal contraceptives; Z79.891 Long term (current) use of opiate analgesic
CPT/HCPCS: 87635; 99283; 96372; J1100; 99285

== ENCOUNTER 2025-01-25 17:40 | Emergency (ER) | payer BC ==
[2025-01-25 18:19] LABS: Basophils % (A) 0 %; Eosinophils # (A) 0.2 k/uL (0-0.7); Eosinophils % (A) 2 %; HCT 42.4 % (34.0-46.0); HGB 13.7 gm/dL (11.4-16.0); Lymphocytes # (A) 0.8 k/uL (1.0-4.8); Lymphocytes % (A) 9 %; MCHC 32.3 g/dL (31.0-37.0); MCV 86.6 fL (80.0-100.0); Mean Platelet Volume 7.3; Monocytes # (A) 0.3 k/uL (0-1.0); Monocytes % (A) 3 %; Neutrophils # (A) 8.4 k/uL (1.3-7.7); Neutrophils % (A) 86 %; Platelet Count 331 k/uL (150-450); RDW 13.2 % (11.5-15.5); WBC 9.8 k/uL (3.8-10.6)
--- NOTE | 2025-01-25 18:21 | ED ---
Abdominal Pain HPI - General Source: patient, RN notes reviewed Mode of arrival: ambulatory Limitations: no limitations <Aaron Gottlieb - Last Filed: 01/25/25 18:19> <Tay Ralph - Last Filed: 01/25/25 21:10> - General Source: patient, RN notes reviewed, old records reviewed <Joaquín Burroughs - Last Filed: 01/25/25 21:44> - General Chief Complaint: Abdominal Pain Stated Complaint: abd pain Time Seen by Provider: 01/25/25 17:56 - History of Present Illness Initial Comments: Quick note: This is a 34-year-old female presenting with abdominal pain and bodyaches x 1 week. Patient states she also began vomiting 2 days ago with resolution prior to recurrence at 0400 this morning. Endorses going to urgent care where it was discovered she had right upper and lower quadrant tenderness with subsequent recommendation to go to ER for further evaluation. Patient also endorses chills and decreased appetite. Denies history of cholecystectomy or appendectomy. Denies fever, chest pain, dyspnea, hematemesis, urinary symptoms. (Aaron Gottlieb) Patient is a 34-year-old female with narcolepsy presenting to the ED with right lower quadrant abdominal pain that has been going on for the past week. This morning around 4 AM patient started vomiting. Throughout the day she has had 3- 4 episodes of vomiting up food contents. Patient did go to urgent care this morning and was told to come to the ED for evaluation of right lower quadrant abdominal pain to rule out acute appendicitis. Patient denies any fever, chills, chest pain, shortness of breath, diarrhea or constipation, dysuria. (Tay Ralph) - Related Data Home Medications Medication Instructions Recorded Confirmed Drospirenone-Ee 3-0.02 1 tab PO DAILY 09/08/19 Gabapentin [Neurontin] 300 mg PO HS 09/08/19 09/08/19 Previous Rx's Medication Instructions Recorded Naproxen [Naprosyn] 250 mg PO TID #15 tab 09/09/19 predniSONE 10 mg PO DAILY #30 tab 09/09/19 methylPREDNISolone Dose Pack 4 mg PO DIRECTED #21 package 02/12/20 [Medrol Dose Pack] predniSONE 50 mg PO DAILY #5 tab 11/17/21 Pantoprazole Sodium [Protonix] 20 mg PO DAILY 14 Days #14 tab 01/25/25 Allergies Allergy/AdvReac Type Severity Reaction Status Date / Time No Known Allergies Allergy Verified 11/17/21 16:53 Review of Systems ROS Other: All systems not noted in ROS Statement are negative. <Aaron Gottlieb - Last Filed: 01/25/25 18:19> ROS Other: All systems not noted in ROS Statement are negative. Constitutional: Denies: fever, chills Respiratory: Denies: cough, dyspnea Cardiovascular: Denies: chest pain Gastrointestinal: Reports: abdominal pain, nausea, vomiting Genitourinary: Denies: dysuria Skin: Denies: rash, lesions <Tay Ralph - Last Filed: 01/25/25 21:10> ROS Other: All systems not noted in ROS Statement are negative. <Joaquín Burroughs - Last Filed: 01/25/25 21:44> ROS Statement: Those systems with pertinent positive or pertinent negative responses have been documented in the HPI. Past Medical History Past Medical History: Asthma Additional Past Medical History / Comment(s): back pain, bronchitis, narcolepsy History of Any Multi-Drug Resistant Organisms: None Reported Past Surgical History: Back Surgery, Section Additional Past Surgical History / Comment(s): laproscopy Past Anesthesia/Blood Transfusion Reactions: No Reported Reaction Past Psychological History: Anxiety Smoking Status: Never smoker Past Alcohol Use History: Rare Past Drug Use History: None Reported <Aaron Gottlieb - Last Filed: 01/25/25 18:19> General Exam Limitations: no limitations <Aaron Gottlieb - Last Filed: 01/25/25 18:19> <Tay Ralph - Last Filed: 01/25/25 21:10> - General Exam Comments Initial Comments: Visual Physical Exam Vital signs reviewed General: Well-appearing, nontoxic, no acute distress. Head: Normocephalic, atraumatic Eyes: PERRLA, EOMI ENT: Airway patent Chest: Nonlabored breathing Skin: No visual rash, normal skin tone Neuro: Alert and oriented 3 Musculoskeletal: No gross abnormalities (Aaron Gottlieb) GENERAL: This is a 34-year-old in no apparent distress at the time of examination. Pleasant and cooperative. HEENT: Head is atraumatic, normocephalic. Conjunctival clear. RESPIRATORY: Clear to auscultation bilaterally. No wheezing, rales, rhonchi, stridor, crackles. CARDIOVASCULAR: Regular rate and rhythm. No systolic or diastolic murmurs. GASTROINTESTINAL: No abdominal distention. Abdomen is soft. Right lower quadrant tender to palpation. No gross skin changes. No rebound tenderness. No signs of peritonitis. INTEGUMENTARY: No cyanosis. No jaundice. No cellulitis. EXTREMITIES: 2+ peripheral pulses. No evidence of peripheral edema. No calf tenderness noted. NEUROLOGIC: Cranial nerves II-XII intact. PSYCHIATRIC: Awake, alert, and oriented X 3. Appropriate affect. Intact judgement and insight. (Tay Ralph) Course Vital Signs 01/25/25 17:52 Temperature 97.9 F Pulse Rate 94 Respiratory 16 Rate Blood Pressure 140/96 O2 Sat by Pulse 99 Oximetry Medical Decision Making <Aaron Gottlieb - Last Filed: 01/25/25 18:19> - Lab Data Result diagrams: 01/25/25 18:02 01/25/25 18:02 <Tay Ralph - Last Filed: 01/25/25 21:10> - Lab Data Result diagrams: 01/25/25 18:02 01/25/25 18:02 <Joaquín Burroughs - Last Filed: 01/25/25 21:44> - Medical Decision Making I completed the quick note portion of this chart signed SANCHEZ Hernandez (Aaron Gottlieb) Was pt. sent in by a medical professional or institution (ROMEO Neal, FINANCIAL ECONOMIST, urgent care, hospital, or snf...) When possible be specific @ -No Did you speak to anyone other than the patient for history (EMS, parent, family, police, friend...)? What history was obtained from this source @ -No Did you review nursing and triage notes (agree or disagree)? Why? @ -I reviewed and agree with nursing and triage notes. Were old charts reviewed (outside hosp., previous admission, EMS record, old EKG, old radiological studies, urgent care reports/EKG's, snf records)? Report findings @ -No old charts were reviewed. Differential Diagnosis? @ -Ovarian torsion, acute appendicitis, ectopic , cholecystitis, ovarian cyst EKG interpreted by me (3pts min.). @ -No EKG X-rays interpreted by me (1pt min.). @ -No x-ray CT interpreted by me (1pt min.). @ -No CT U/S interpreted by me (1pt. min.). @ -Pending ultrasound of appendix What testing was considered but not performed or refused? (CT, X-rays, U/S, labs)? Why? @ -None What meds were considered but not given or refused? Why? @ -None Did you discuss the management of the patient with other professionals (amanda sharif i.e. , PA, FINANCIAL ECONOMIST, lab, RT, psych nurse, hospital social worker, pediatric nurse practitioner, teacher, community arts officer, case coordinator)? Give summary @ -Discussed with Dr. Burroughs Was smoking cessation discussed for >3mins.? @ -No Was critical care preformed (if so, how long)? @ -No Were there social determinants of health that impacted care today? How? (Homelessness, low income, unemployed, alcoholism, drug addiction, naidu sportation, low edu. Level, literacy, decrease access to med. care, half-way, rehab)? @ -No Was there de-escalation of care discussed even if they declined (Discuss DNR or withdrawal of care, Hospice)? DNR status @ -No What co-morbidities impacted this encounter? (DM, HTN, Smoking, COPD, CAD, Cancer, CVA, ARF, Chemo, Hep., AIDS, mental health diagnosis, sleep apnea, morbid obesity)? @ -Narcolepsy Was patient admitted / discharged? Hospital course, mention meds given and route, prescriptions, significant lab abnormalities, going to OR and other pertinent info. @ -Patient will be discharged pending results from pelvic ultrasound. Abdominal ultrasound does not exclude diagnosis of acute appendicitis. Discussed with patient regarding CBC and CMP findings and patient would not like to undergo CT scan at this point. I have signed out this patient to Dr. Burroughs and he will follow-up with patient regarding results from pelvic ultrasound. Undiagnosed new problem with uncertain prognosis? @ -No Drug Therapy requiring intensive monitoring for toxicity (Heparin, Nitro, Insulin, Cardizem)? @ -No Were any procedures done? @ -Ultrasound of abdomen to rule out appendicitis and pelvic ultrasound to rule out ovarian torsion. Diagnosis/symptom? @ -Abdominal pain Acute, or Chronic, or Acute on Chronic? @ -Acute Uncomplicated (without systemic symptoms) or Complicated (systemic symptoms)? @ -Uncomplicated Side effects of treatment? @ -No Exacerbation, Progression, or Severe Exacerbation? @ -No exacerbation Poses a threat to life or bodily function? How? (Chest pain, [place], [place], pneumonia, PE, COPD, DKA, ARF, appy, cholecystitis, CVA, Diverticulitis, Homicidal, Suicidal, threat to staff... and all critical care pts) @ -No (Tay Ralph) Patient signed out to me pending results of ultrasound. Transabdominal ultrasound was obtained interpreted by myself showing no obvious acute process. Was a imperfect exam however patient's symptoms are improved. I discussed results with patient. We did discuss, as did Dr. Ralph, obtaining a CT however we both agreed to defer at this time. Patient was in agreement this plan. Strict return precautions discussed. I instructed the patient to follow up with their PCP in the next 1-3 days. I explained that the patient should return to the emergency department if they experience any worsening symptoms. Strict return precautions were discussed with the patient. The patient expressed understanding of these instructions. I answered all questions that the patient had. The patient was discharged home in good condition with their prescriptions and follow up information. Diagnosis/symptom? @ -Abdominal pain of unknown etiology Acute, or Chronic, or Acute on Chronic? @ -Acute Uncomplicated (without systemic symptoms) or Complicated (systemic symptoms)? @ -Uncomplicated Side effects of treatment? @ -None Exacerbation, Progression, or Severe Exacerbation] @ -No Poses a threat to life or bodily function? @ -Unlikely at this time I personally saw the patient and performed the critical portion of the service. I discussed the patient care with the resident. I directed management, care planning and final disposition of the patient. This includes, but not limited to, review of all lab work, radiological studies, EKG's, consultations, vital signs, and nursing notes. EKG interpreted by me (3pts min.) @None done X-Rays interpreted by me (1 pt min.) @None CT interpreted by me ( 1pt min.) @None U/S interpreted by me (1 pt min.) @Ultrasound of the pelvis and ultrasound of the abdomen shows no obvious acute process. No obvious acute appendicitis and no obvious acute ovarian issue. (Joaquín Burroughs) - Lab Data Lab Results 01/25/25 01/25/25 01/25/25 Range/Units 17:55 17:55 18:02 WBC 9.8 (3.8-10.6) k/uL RBC 4.90 (3.80-5.40) m/uL Hgb 13.7 (11.4-16.0) gm/dL Hct 42.4 (34.0-46.0) % MCV 86.6 (80.0-100.0) fL MCH 28.0 (25.0-35.0) pg MCHC 32.3 (31.0-37.0) g/dL RDW 13.2 (11.5-15.5) % Plt Count 331 (150-450) k/uL MPV 7.3 Neutrophils % 86 % Lymphocytes % 9 % Monocytes % 3 % Eosinophils % 2 % Basophils % 0 % Neutrophils # 8.4 H (1.3-7.7) k/uL Lymphocytes # 0.8 L (1.0-4.8) k/uL Monocytes # 0.3 (0-1.0) k/uL Eosinophils # 0.2 (0-0.7) k/uL Basophils # 0.0 (0-0.2) k/uL Sodium (137-145) mmol/L Potassium (3.5-5.1) mmol/L Chloride (98-107) mmol/L Carbon Dioxide (22-30) mmol/L Anion Gap mmol/L BUN (7-17) mg/dL Creatinine (0.52-1.04) mg/dL Est GFR (CKD-EPI)AfAm (>60 ml/min/1.73 sqM) Est GFR (CKD-EPI)NonAf (>60 ml/min/1.73 sqM) Glucose (74-99) mg/dL Plasma Lactic Acid Obey (0.7-2.0) mmol/L Calcium (8.4-10.2) mg/dL Total Bilirubin (0.2-1.3) mg/dL AST (14-36) U/L ALT (4-34) U/L Alkaline Phosphatase (38-126) U/L Total Protein (6.3-8.2) g/dL Albumin (3.5-5.0) g/dL Amylase (30-110) U/L Lipase (23-300) U/L Urine Color Yellow Urine Appearance Cloudy H (Clear) Urine pH 7.5 (5.0-8.0) Ur Specific [place] 1.028 (1.001-1.035) Urine Protein Trace H (Negative) Urine Glucose (UA) Negative (Negative) Urine Ketones Negative (Negative) Urine Blood Negative (Negative) Urine Nitrite Negative (Negative) Urine Bilirubin Negative (Negative) Urine Urobilinogen <2.0 (<2.0) mg/dL Ur Leukocyte Esterase Small H (Negative) Urine RBC 2 (0-5) /hpf Urine WBC 1 (0-5) /hpf Ur Squamous Epith Cells 14 H (0-4) /hpf Urine Bacteria Rare H (None) /hpf Urine Mucus Few H (None) /hpf Urine HCG, Qual Not Detected (Not Detectd) 01/25/25 01/25/25 Range/Units 18:02 18:02 WBC (3.8-10.6) k/uL RBC (3.80-5.40) m/uL Hgb (11.4-16.0) gm/dL Hct (34.0-46.0) % MCV (80.0-100.0) fL MCH (25.0-35.0) pg MCHC (31.0-37.0) g/dL RDW (11.5-15.5) % Plt Count (150-450) k/uL MPV Neutrophils % % Lymphocytes % % Monocytes % % Eosinophils % % Basophils % % Neutrophils # (1.3-7.7) k/uL Lymphocytes # (1.0-4.8) k/uL Monocytes # (0-1.0) k/uL Eosinophils # (0-0.7) k/uL Basophils # (0-0.2) k/uL Sodium 135 L (137-145) mmol/L Potassium 4.1 (3.5-5.1) mmol/L Chloride 102 (98-107) mmol/L Carbon Dioxide 23 (22-30) mmol/L Anion Gap 10 mmol/L BUN 10 (7-17) mg/dL Creatinine 0.72 (0.52-1.04) mg/dL Est GFR (CKD-EPI)AfAm >90 (>60 ml/min/1.73 sqM) Est GFR (CKD-EPI)NonAf >90 (>60 ml/min/1.73 sqM) Glucose 100 H (74-99) mg/dL Plasma Lactic Acid Obey 1.3 (0.7-2.0) mmol/L Calcium 9.0 (8.4-10.2) mg/dL Total Bilirubin 0.5 (0.2-1.3) mg/dL AST 24 (14-36) U/L ALT 18 (4-34) U/L Alkaline Phosphatase 65 (38-126) U/L Total Protein 6.8 (6.3-8.2) g/dL Albumin 4.0 (3.5-5.0) g/dL Amylase 44 (30-110) U/L Lipase 42 (23-300) U/L Urine Color Urine Appearance (Clear) Urine pH (5.0-8.0) Ur Specific [place] (1.001-1.035) Urine Protein (Negative) Urine Glucose (UA) (Negative) Urine Ketones (Negative) Urine Blood (Negative) Urine Nitrite (Negative) Urine Bilirubin (Negative) Urine Urobilinogen (<2.0) mg/dL Ur Leukocyte Esterase (Negative) Urine RBC (0-5) /hpf Urine WBC (0-5) /hpf Ur Squamous Epith Cells (0-4) /hpf Urine Bacteria (None) /hpf Urine Mucus (None) /hpf Urine HCG, Qual (Not Detectd) Disposition <Aaron Gottlieb - Last Filed: 01/25/25 18:19> Is patient prescribed a controlled substance at d/c from ED?: No Time of Disposition: 20:55 <Tay Ralph - Last Filed: 01/25/25 21:10> <Joaquín Burroughs - Last Filed: 01/25/25 21:44> Clinical Impression: Abdominal pain, Abdominal pain of unknown etiology Narrative: Patient will be discharged home pending pelvic ultrasound results. Advised to return to the ED if symptoms get worse such as intractable vomiting, new onset fever. (Tay Ralph) Disposition: HOME SELF-CARE Condition: Good Instructions (If sedation given, give patient instructions): Abdominal Pain (ED) Additional Instructions: Diagnosis is abdominal pain of unknown etiology. Follow-up with your PCP in 1-3 days. Return to the ER for any worsening symptoms. Prescriptions: Pantoprazole Sodium [Protonix] 20 mg PO DAILY 14 Days #14 tab Referrals: Sadiq Grace MD [Primary Care Provider] - 1-2 days
[2025-01-25 18:24] LABS: ALT 18 U/L (4-34); AST 24 U/L (14-36); African American GFR (CKD) >90 (>60 ml/min/1.73 sqM); Alkaline Phosphatase 65 U/L (38-126); Amylase 44 U/L (30-110); Anion Gap 10 mmol/L; Blood Urea Nitrogen 10 mg/dL (7-17); Carbon Dioxide 23 mmol/L (22-30); Chloride 102 mmol/L (98-107); Glucose 100 mg/dL (74-99); Lipase 42 U/L (23-300); Non-African American GFR(CKD) >90 (>60 ml/min/1.73 sqM); Potassium 4.1 mmol/L (3.5-5.1); Sodium 135 mmol/L (137-145); Total Bilirubin 0.5 mg/dL (0.2-1.3); Total Protein 6.8 g/dL (6.3-8.2)
[2025-01-25 18:25] LABS: Appearance,Urine Cloudy (Clear); Bacteria,Urine Rare /hpf; Bilirubin,Urine Negative (Negative); Blood,Urine Negative (Negative); Color,Urine Yellow; Glucose,Urine (UA) Negative (Negative); Ketones,Urine Negative (Negative); Leukocyte Esterase,Urine Small (Negative); Mucus,Urine Few /hpf; Nitrite,Urine Negative (Negative); PH, Urine 7.5 (5.0-8.0); Protein,Urine Trace (Negative); RBC,Urine 2 /hpf (0-5); Specific Gravity,Urine 1.028 (1.001-1.035); Squamous Epithelial Cell,Urine 14 /hpf (0-4); Urobilinogen,Urine <2.0 mg/dL (<2.0); WBC,Urine 1 /hpf (0-5)
--- NOTE | 2025-01-25 19:04 | ED ---
Abdominal Pain HPI - General Chief Complaint: Abdominal Pain Stated Complaint: abd pain Source: patient, RN notes reviewed Mode of arrival: ambulatory Limitations: no limitations - History of Present Illness Initial Comments: Patient is a 34-year-old female with narcolepsy presenting to the ED with right lower quadrant abdominal pain that has been going on for the past week. This morning around 4 AM patient started vomiting. Throughout the day she has had 3- 4 episodes of vomiting up food contents. Patient did go to urgent care this morning and was told to come to the ED for evaluation of right lower quadrant abdominal pain to rule out acute appendicitis. Patient denies any fever, chills, chest pain, shortness of breath, diarrhea or constipation, dysuria. - Related Data Home Medications Medication Instructions Recorded Confirmed Drospirenone-Ee 3-0.02 1 tab PO DAILY 09/08/19 Gabapentin [Neurontin] 300 mg PO HS 09/08/19 09/08/19 Previous Rx's Medication Instructions Recorded Naproxen [Naprosyn] 250 mg PO TID #15 tab 09/09/19 predniSONE 10 mg PO DAILY #30 tab 09/09/19 methylPREDNISolone Dose Pack 4 mg PO DIRECTED #21 package 02/12/20 [Medrol Dose Pack] predniSONE 50 mg PO DAILY #5 tab 11/17/21 Allergies Allergy/AdvReac Type Severity Reaction Status Date / Time No Known Allergies Allergy Verified 11/17/21 16:53 Review of Systems ROS Statement: Those systems with pertinent positive or pertinent negative responses have been documented in the HPI. ROS Other: All systems not noted in ROS Statement are negative. Constitutional: Denies: fever, chills Respiratory: Denies: cough, dyspnea Cardiovascular: Denies: chest pain, palpitations Gastrointestinal: Reports: abdominal pain, nausea, vomiting. Denies: diarrhea, constipation Genitourinary: Denies: urgency, dysuria Past Medical History Past Medical History: Asthma Additional Past Medical History / Comment(s): back pain, bronchitis, narcolepsy History of Any Multi-Drug Resistant Organisms: None Reported Past Surgical History: Back Surgery, Section Additional Past Surgical History / Comment(s): laproscopy Past Anesthesia/Blood Transfusion Reactions: No Reported Reaction Past Psychological History: Anxiety Smoking Status: Never smoker Past Alcohol Use History: Rare Past Drug Use History: None Reported General Exam - General Exam Comments Initial Comments: GENERAL: This is a 34-year-old in no apparent distress at the time of examination. Pleasant and cooperative. HEENT: Head is atraumatic, normocephalic. Conjunctival clear. RESPIRATORY: Clear to auscultation bilaterally. No wheezing, rales, rhonchi, stridor, crackles. CARDIOVASCULAR: Regular rate and rhythm. No systolic or diastolic murmurs. GASTROINTESTINAL: No abdominal distention. Abdomen is soft. Right lower quadrant tender to palpation. No gross skin changes. No rebound tenderness. No signs of peritonitis. INTEGUMENTARY: No cyanosis. No jaundice. No cellulitis. EXTREMITIES: 2+ peripheral pulses. No evidence of peripheral edema. No calf tenderness noted. NEUROLOGIC: Cranial nerves II-XII intact. PSYCHIATRIC: Awake, alert, and oriented X 3. Appropriate affect. Intact judgement and insight. Limitations: no limitations Course Vital Signs 01/25/25 17:52 Temperature 97.9 F Pulse Rate 94 Respiratory 16 Rate Blood Pressure 140/96 O2 Sat by Pulse 99 Oximetry Medical Decision Making - Medical Decision Making Was pt. sent in by a medical professional or institution (Dr. PA, MINING MACHINERY ASSEMBLER, urgent care, hospital, or long-term...) When possible be specific @ -No Did you speak to anyone other than the patient for history (EMS, parent, family, police, friend...)? What history was obtained from this source @ -No Did you review nursing and triage notes (agree or disagree)? Why? @ -I reviewed and agree with nursing and triage notes. Were old charts reviewed (outside hosp., previous admission, EMS record, old EKG , old radiological studies, urgent care reports/EKG's, long-term records)? Report findings @ -No old charts were reviewed. Differential Diagnosis? @ -Ovarian torsion, acute appendicitis, ectopic , cholecystitis, ovarian cyst EKG interpreted by me (3pts min.). @ -No EKG X-rays interpreted by me (1pt min.). @ -No x-ray CT interpreted by me (1pt min.). @ -No CT U/S interpreted by me (1pt. min.). @ -Pending ultrasound of appendix What testing was considered but not performed or refused? (CT, X-rays, U/S, labs)? Why? @ -None What meds were considered but not given or refused? Why? @ -None Did you discuss the management of the patient with other professionals (professionals i.e. DrRylie, PA, MINING MACHINERY ASSEMBLER, lab, RT, psych nurse, certified social workers in health care, auto design detailer, teacher, cash management officer, case management assistant)? Give summary @ -Discussed with Dr. Burroughs Was smoking cessation discussed for >3mins.? @ -No Was critical care preformed (if so, how long)? @ -No Were there social determinants of health that impacted care today? How? (Homelessness, low income, unemployed, alcoholism, drug addiction, transportation, low edu. Level, literacy, decrease access to med. care, longterm, rehab)? @ -No Was there de-escalation of care discussed even if they declined (Discuss DNR or withdrawal of care, Hospice)? DNR status @ -No What co-morbidities impacted this encounter? (DM, HTN, Smoking, COPD, CAD, Cancer, CVA, ARF, Chemo, Hep., AIDS, mental health diagnosis, sleep apnea, morbid obesity)? @ -Narcolepsy Was patient admitted / discharged? Hospital course, mention meds given and route, prescriptions, significant lab abnormalities, going to OR and other pertinent info. @ -[hospital course] Undiagnosed new problem with uncertain prognosis? @ -No Drug Therapy requiring intensive monitoring for toxicity (Heparin, Nitro, I nsulin, Cardizem)? @ -No Were any procedures done? @ -Ultrasound of abdomen to rule out appendicitis Diagnosis/symptom? @ -[default] Acute, or Chronic, or Acute on Chronic? @ -[default] Uncomplicated (without systemic symptoms) or Complicated (systemic symptoms)? @ -Uncomplicated Side effects of treatment? @ -No Exacerbation, Progression, or Severe Exacerbation? @ -No exacerbation Poses a threat to life or bodily function? How? (Chest pain, [place], [place], pneumonia, PE, COPD, DKA, ARF, appy, cholecystitis, CVA, Diverticulitis, Homicidal, Suicidal, threat to staff... and all critical care pts) @ -No - Lab Data Result diagrams: 01/25/25 18:02 01/25/25 18:02 Lab Results 01/25/25 01/25/25 01/25/25 Range/Units 17:55 17:55 18:02 WBC 9.8 (3.8-10.6) k/uL RBC 4.90 (3.80-5.40) m/uL Hgb 13.7 (11.4-16.0) gm/dL Hct 42.4 (34.0-46.0) % MCV 86.6 (80.0-100.0) fL MCH 28.0 (25.0-35.0) pg MCHC 32.3 (31.0-37.0) g/dL RDW 13.2 (11.5-15.5) % Plt Count 331 (150-450) k/uL MPV 7.3 Neutrophils % 86 % Lymphocytes % 9 % Monocytes % 3 % Eosinophils % 2 % Basophils % 0 % Neutrophils # 8.4 H (1.3-7.7) k/uL Lymphocytes # 0.8 L (1.0-4.8) k/uL Monocytes # 0.3 (0-1.0) k/uL Eosinophils # 0.2 (0-0.7) k/uL Basophils # 0.0 (0-0.2) k/uL Sodium (137-145) mmol/L Potassium (3.5-5.1) mmol/L Chloride (98-107) mmol/L Carbon Dioxide (22-30) mmol/L Anion Gap mmol/L BUN (7-17) mg/dL Creatinine (0.52-1.04) mg/dL Est GFR (CKD-EPI)AfAm (>60 ml/min/1.73 sqM) Est GFR (CKD-EPI)NonAf (>60 ml/min/1.73 sqM) Glucose (74-99) mg/dL Plasma Lactic Acid Obey (0.7-2.0) mmol/L Calcium (8.4-10.2) mg/dL Total Bilirubin (0.2-1.3) mg/dL AST (14-36) U/L ALT (4-34) U/L Alkaline Phosphatase (38-126) U/L Total Protein (6.3-8.2) g/dL Albumin (3.5-5.0) g/dL Amylase (30-110) U/L Lipase (23-300) U/L Urine Color Yellow Urine Appearance Cloudy H (Clear) Urine pH 7.5 (5.0-8.0) Ur Specific [place] 1.028 (1.001-1.035) Urine Protein Trace H (Negative) Urine Glucose (UA) Negative (Negative) Urine Ketones Negative (Negative) Urine Blood Negative (Negative) Urine Nitrite Negative (Negative) Urine Bilirubin Negative (Negative) Urine Urobilinogen <2.0 (<2.0) mg/dL Ur Leukocyte Esterase Small H (Negative) Urine RBC 2 (0-5) /hpf Urine WBC 1 (0-5) /hpf Ur Squamous Epith Cells 14 H (0-4) /hpf Urine Bacteria Rare H (None) /hpf Urine Mucus Few H (None) /hpf Urine HCG, Qual Not Detected (Not Detectd) 01/25/25 01/25/25 Range/Units 18:02 18:02 WBC (3.8-10.6) k/uL RBC (3.80-5.40) m/uL Hgb (11.4-16.0) gm/dL Hct (34.0-46.0) % MCV (80.0-100.0) fL MCH (25.0-35.0) pg MCHC (31.0-37.0) g/dL RDW (11.5-15.5) % Plt Count (150-450) k/uL MPV Neutrophils % % Lymphocytes % % Monocytes % % Eosinophils % % Basophils % % Neutrophils # (1.3-7.7) k/uL Lymphocytes # (1.0-4.8) k/uL Monocytes # (0-1.0) k/uL Eosinophils # (0-0.7) k/uL Basophils # (0-0.2) k/uL Sodium 135 L (137-145) mmol/L Potassium 4.1 (3.5-5.1) mmol/L Chloride 102 (98-107) mmol/L Carbon Dioxide 23 (22-30) mmol/L Anion Gap 10 mmol/L BUN 10 (7-17) mg/dL Creatinine 0.72 (0.52-1.04) mg/dL Est GFR (CKD-EPI)AfAm >90 (>60 ml/min/1.73 sqM) Est GFR (CKD-EPI)NonAf >90 (>60 ml/min/1.73 sqM) Glucose 100 H (74-99) mg/dL Plasma Lactic Acid Obey 1.3 (0.7-2.0) mmol/L Calcium 9.0 (8.4-10.2) mg/dL Total Bilirubin 0.5 (0.2-1.3) mg/dL AST 24 (14-36) U/L ALT 18 (4-34) U/L Alkaline Phosphatase 65 (38-126) U/L Total Protein 6.8 (6.3-8.2) g/dL Albumin 4.0 (3.5-5.0) g/dL Amylase 44 (30-110) U/L Lipase 42 (23-300) U/L Urine Color Urine Appearance (Clear) Urine pH (5.0-8.0) Ur Specific [place] (1.001-1.035) Urine Protein (Negative) Urine Glucose (UA) (Negative) Urine Ketones (Negative) Urine Blood (Negative) Urine Nitrite (Negative) Urine Bilirubin (Negative) Urine Urobilinogen (<2.0) mg/dL Ur Leukocyte Esterase (Negative) Urine RBC (0-5) /hpf Urine WBC (0-5) /hpf Ur Squamous Epith Cells (0-4) /hpf Urine Bacteria (None) /hpf Urine Mucus (None) /hpf Urine HCG, Qual (Not Detectd) Disposition Disposition: HOME SELF-CARE Condition: Stable Referrals: Sadiq Grace MD [Primary Care Provider] - 1-2 days
--- NOTE | 2025-01-25 20:26 | US ---
EXAMINATION TYPE: US abdomen APPY DATE OF EXAM: 01/25/2025 COMPARISON: NONE CLINICAL INDICATION: Female, 34 years old with history of rule out appendicitis; rule out appendiciti s TECHNIQUE: Multiple sonographic images of the right lower quadrant were obtained with graded compress ion with grayscale and color Doppler imaging. FINDINGS: *limited exam due to patient body habitus and overlying bowel gas BRIAR SHOP SUPERVISOR NOTES: Scanned patients area of concern in the right lower quadrant, unable to visualize the appendix with ultrasound at this time IMPRESSION: Nonvisualization of the appendix in the right lower quadrant. This does not exclude diagnosis of acut e appendicitis. [facility], , 01/25/2025 8:23 PM
--- NOTE | 2025-01-25 21:20 | US ---
EXAMINATION TYPE: US pelvic complete DATE OF EXAM: 01/25/2025 COMPARISON: NONE CLINICAL INDICATION: Female, 34 years old with history of rule out ovarian torsion; pain TECHNIQUE: Transabdominal (TA). Transabdominal grayscale sonographic images of the pelvis were acquired. Transvaginal sonographic im ages were medically necessary to better assess the following anatomy: Doppler imaging: Not performed. FINDINGS: Dr came in room and wanted pt ovaries checked because of her right sided pain, pt refused TV but was okay with TA, pt gets TV every 3 months with her OB, hx of c section, hx of laparoscopy & DnC, pt bel ieves she had cysts removed within her Cx, pt is not concerned for her ovaries. She recently traveled to [place] and walked for several hours at a time and thinks it's possible for her pain to be from t his. EXAM MEASUREMENTS: Uterus: 7.4x3.6x3.0cm Endometrial Stripe: 0.6cm Right Ovary: Not visualized due to bowel gas. Left Ovary: Not visualized due to bowel gas. very limited scan due to pt body habitus & overlying bowel, bladder also was not full 1. Uterus: Anteverted wnl 2. Endometrium: slightly obscured, wnl as best visualized 3. Right Ovary: Obscured by overlying bowel gas, limited due to pt body habitus 4. Left Ovary: Obscured by overlying bowel gas limited due to pt body habitus 5. Bilateral Adnexa: wnl 6. Posterior cul-de-sac: wnl as best visualized, slightly obscured by bowel IMPRESSION: No spectral imaging was performed of the ovaries since March for review. The exam is relatively unremar kable. No evidence for acute process. [facility], , 01/25/2025 9:18 PM
[2025-01-25] MEDS: ONDANSETRON 4 MG/2 ML VIAL IVP STA (21:44)
[2025-01-25] MEDS: PANTOPRAZOLE 40 MG/10 ML VIAL IVP STA (21:44)
[2025-01-25] MEDS: ONDANSETRON 4 MG ODT STARTER PACK 2 TAB BTL PO STA (21:47)
[2025-01-25 21:54] VITALS: BP 162/98; PULSE 97; RESP 20; TEMP 98.5
== END 2025-01-25 21:54 | disposition home or self-care (01) ==
LOC: EC 17:40
DX: R10.11 Right upper quadrant pain (principal); R10.31 Right lower quadrant pain
CPT/HCPCS: 36415; 80053; 82150; 83605; 83690; 85025; 81001; 81025; 76705; 76856; 99284; 96374; 96375; J2405; S0119; J2470